=== PATIENT | male | born 1990 | race Caucasian/White ===

== ENCOUNTER 2018-01-21 03:41 | Emergency (ER) | payer MEDICAID ==
[2018-01-21] MEDS: CEFAZOLIN 1 GM INJ IM (04:36)
[2018-01-21] MEDS: DIPHTH/TET/ACEL PERTUSS (ADULT) 0.5 ML VIAL IM* (04:37)
== END 2018-01-21 06:16 | disposition home or self-care (01) ==
LOC: FTE 03:41
DX: S91.22 Laceration with foreign body of toe with damage to nail (principal); S91.222A Laceration with foreign body of left great toe with damage to nail, initial encounter; F17.210 Nicotine dependence, cigarettes, uncomplicated; W33.0 Accidental rifle, shotgun and larger firearm discharge; Y92.9 Unspecified place or not applicable
CPT/HCPCS: 73630; 73630-50; 90715; 96372; 99284-25